=== PATIENT | female | born 1945 | race Caucasian/White ===

== ENCOUNTER 2019-10-27 01:31 | Emergency (ER) | payer MEDICARE, OTHER ==
--- NOTE | 2019-10-27 01:58 | EDM.PDOC ---
ED HPI GENERAL MEDICAL PROBLEM - General Stated Complaint: HEART SKIPPING BEATS Time Seen by Provider: 10/27/19 01:40 Source of Information: Reports: Patient History Limitations: Reports: No Limitations - History of Present Illness INITIAL COMMENTS - FREE TEXT/NARRATIVE: Patient presented to the ED because of skip beats which is on and off for 1 year. She is otherwise asymptomatic and denies any chest pain,dyspnea,or syncopal episods. She admits of dringkin a glass of regular coffee every day plus 3 extra cups of decaf. - Related Data Allergies Allergy/AdvReac Type Severity Reaction Status Date / Time Sulfa (Sulfonamide Allergy Rash Verified 09/04/15 19:03 Antibiotics) Home Meds: Home Meds . 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: Endocrine/Metabolic History: Reports: Diabetes, Type II Oncologic (Cancer) History: Reports: Breast - Infectious Disease History Infectious Disease History: Reports: Chicken Pox, Measles, Mumps - Past Surgical History Female Surgical History: Reports: Breast Biopsy, Other (See Below) Oncologic Surgical History: Reports: Biopsy of Breast, Lumpectomy ED ROS GENERAL - Review of Systems Review Of Systems: See Below Constitutional: Reports: No Symptoms HEENT: Reports: No Symptoms Respiratory: Reports: No Symptoms Cardiovascular: Reports: Other (skip beats) Endocrine: Reports: No Symptoms GI/Abdominal: Reports: No Symptoms : Reports: No Symptoms Musculoskeletal: Reports: No Symptoms Skin: Reports: No Symptoms ED EXAM, GENERAL - Physical Exam Exam: See Below Exam Limited By: No Limitations General Appearance: Alert, No Apparent Distress Eye Exam: Bilateral Eye: PERRL Nose: Normal Inspection, Normal Mucosa, No Blood Throat/Mouth: Normal Inspection, Normal Lips, Normal Teeth Head: Atraumatic, Normocephalic Neck: Normal Inspection, Supple, Non-Tender Respiratory/Chest: No Respiratory Distress, Lungs Clear, Normal Breath Sounds Cardiovascular: Normal Peripheral Pulses, Regular Rate, Rhythm, No Edema, No Gallop GI/Abdominal: Normal Bowel Sounds, Soft, Non-Tender, No Organomegaly, No Distention, No Abnormal Bruit Back Exam: Normal Inspection, Full Range of Motion Extremities: Normal Inspection, Normal Range of Motion Course - Vital Signs Text/Narrative:: EKG-NSR with some PVC's reassurance metoprolol 25 mg po x1 Last Recorded V/S: Last Vital Signs Temp 36.1 C 10/27/19 01:48 Pulse 82 10/27/19 02:19 Resp 12 10/27/19 01:48 BP 171/58 H 10/27/19 02:19 Pulse Ox 100 10/27/19 01:48 - Orders/Labs/Meds Meds: Medications Discontinued Medications Generic Name Dose Route Start Last Admin Trade Name Dominique PRN Reason Stop Dose Admin Metoprolol Succinate 25 mg 10/27/19 02:15 10/27/19 02:19 Toprol Xl PO 10/27/19 02:16 25 mg ONETIME ONE Administration Departure - Departure Time of Disposition: 02:15 Disposition: Home, Self-Care 01 Condition: Good Clinical Impression: PVC (premature ventricular contraction) Instructions: Premature Ventricular Contraction Referrals: Junior Camp MD [Primary Care Provider] - Forms: ED Department Discharge Additional Instructions: please read discharge instructions on PVC's drink less coffee follow up with your doctor if your hear rate is more than 100 and it's causing you to have chest pain,shortness,dizziness otherwise, follow up as needed Sepsis Event Note - Focused Exam Vital Signs: Vital Signs Temp Pulse Pulse Resp BP BP Pulse Ox 10/27/19 02:19 82 171/58 H 10/27/19 01:48 36.1 C 90 12 194/70 H 100 Date Exam was Performed: 10/27/19 Time Exam was Performed: 02:27
[2019-10-27] MEDS ORDERED: Metoprolol Succinate 25 MG Tab.ER PO ONE (02:15)
[2019-10-27 02:20] VITALS: BP 171/58
[2019-10-27 02:59] VITALS: PULSE 84
== END 2019-10-27 02:28 | disposition home or self-care (01) ==
LOC: FB.ED 01:31
DX: I49.3 Ventricular premature depolarization (principal); E11.9 Type 2 diabetes mellitus without complications; I10 Essential (primary) hypertension; Z88.2 Allergy status to sulfonamides
CPT/HCPCS: 93005; 93010; 99283; 99284; A9270

== ENCOUNTER 2023-02-06 07:58 | Day surgery (SDC) | payer MEDICARE, OTHER ==
[2023-02-06] MEDS ORDERED: Lidocaine 1% PF 2 ML SDV IV ONE (07:59)
[2023-02-06] MEDS ORDERED: Propofol 200 MG/20 ML SDV IV ONE (07:59)
[2023-02-06] MEDS ORDERED: Lactated Ringers 1,000 ML IV SCH (08:15)
[2023-02-06] MEDS ORDERED: Sodium Chloride 0.9% 10 ML Syringe FLUSH PRN (08:15)
[2023-02-06] MEDS ORDERED: Simethicone Drops 40 MG/0.6 ML 30 ML Bottle ONE (09:59)
[2023-02-06 12:14] VITALS: BP 149/68; PULSE 75
== END 2023-02-06 11:30 | disposition home or self-care (01) ==
LOC: FB.SDS 07:58
PROVIDERS: ATTEND Surgery
DX: K57.30 Diverticulosis of large intestine without perforation or abscess without bleeding (principal); J45.909 Unspecified asthma, uncomplicated; E78.00 Pure hypercholesterolemia, unspecified; I10 Essential (primary) hypertension; E66.9 Obesity, unspecified; Z80.0 Family history of malignant neoplasm of digestive organs; Z87.19 Personal history of other diseases of the digestive system; Z79.84 Long term (current) use of oral hypoglycemic drugs; Z79.899 Other long term (current) drug therapy; Z88.2 Allergy status to sulfonamides; Z88.8 Allergy status to other drugs, medicaments and biological substances; Z85.3 Personal history of malignant neoplasm of breast; Z68.36 Body mass index [BMI] 36.0-36.9, adult
CPT/HCPCS: 00811; 82947; A9270-GY; J2704; J7120